=== PATIENT | male | born 1960 | race Caucasian/White ===

== ENCOUNTER 2023-04-26 20:06 | Observation (INO) ==
--- NOTE | 2023-04-26 20:46 | Emergency Department Note ---
Impression & Plan Chest pain, Syncope ED Provider Note NAME: LUDA WILKINSON AGE: 62 SEX: M : 1960 ARRIVES VIA: Ambulance INFORMANT: Patient ED PROVIDER(S): Parth Silver DO CHIEF COMPLAINT: Chest pain and syncope HPI: Patient is a 62-year-old male who presents to the ER with a past medical history of [place] with a stent who presents to the ER as he took Gummies and drank alcohol today. He notes he was sitting eating and went outside as he was not feeling well. He went to vomit and he passed out for about 30 seconds. When he woke back up he knew where he was and what was going on. There was no seizure activity per bystanders. EMS was called and he was brought in. He does note some chest heaviness which has now abated. Last for about 30 minutes. He has some tingling in bilateral arms. No dysuria, urgency, or frequency. No other exacerbating or remitting factors. ADDITIONAL HISTORY OBTAINED: Per HPI Chronic Medical/Social Conditions Affecting Care: Per HPI PAST MEDICAL HISTORY:See Below PAST SURGICAL HISTORY:See Below FAMILY HISTORY:See Below SOCIAL HISTORY:See Below HOME MEDICATIONS:See Below ALLERGIES:See Below VITALS:See Below PHYSICAL EXAMINATION: GENERAL: Sitting up in bed, alert, well appearing, well nourished, no distress, non-toxic EYE EXAM: normal conjunctiva. PERRL and EOM's grossly intact. OROPHARYNX: mucous membranes are moist NECK: supple, no nuchal rigidity, no adenopathy, non-tender LUNGS: Clear to auscultation. Normal chest wall mechanics HEART: no murmurs, S1 normal and S2 normal ABDOMEN: abdomen soft, non-tender, normo-active bowel sounds, no masses, no rebound or guarding. UPPER EXTREMITIES: upper extremities are grossly normal. LOWER EXTREMITIES: No pitting edema. NEURO EXAM: Normal sensorium, cranial nerves II-XII grossly intact, normal speech, no gross weakness of arms, no gross weakness of legs. No drift. Finger to nose intact. Gross sensation intact. MEDICAL DECISION MAKING: Patient is a 62-year-old male who presents ER for above-stated complaint. IV was established blood work is obtained. Labs show no significant leukocytosis. No anemia. BMP along with LFTs bilirubin was unremarkable. Troponin was negative. Lipase was normal. CT of the head was negative. Chest x-ray unremarkable. Patient's symptoms were completely abated by the time he reached the ER. He was given aspirin. He was updated bedside and with his history of a previous [place] noting that this felt similar but definitely not the same I did elect to observe him overnight. Do favor the syncopal event was vasovagal in nature. External Records Reviewed: None Consults/Care Managements Discussions: Per MDM Triage Nursing notes reviewed. Limited review of prior medical records performed Vital Signs: reviewed and remarkable for no significant abnormalities Differential diagnosis: Cardiac ischemia, aortic dissection, pulmonary embolism, pneumothorax, pneumonia, pericarditis, myocarditis, esophageal rupture, GERD, cholecystitis, pancreatitis, musculoskeletal, as well as other pathologies. ER treatment provided: See below Diagnostics interpreted by me include EKG and cardiac monitoring as listed below: -Cardiac Monitoring: An order was placed for continuous cardiac monitoring. The monitor shows a rate of 72 with sinus rhythm. -ECG: Sinus rhythm rate 73 Normal axis No PVCs QTc 464 -Laboratory studies:Interpreted by me as stated above in MDM and shown below. Imaging studies: Xrays: As interpreted by me: Portable AP upright 1 view of the chest shows no focal infiltrate CTs show: CT of the head was negative per radiology Procedures:none Critical Care: None Past Med/Surg History Social History Smoking Status: Never smoker Allergies Allergies Allergy/AdvReac Type Severity Reaction Status Date / Time No Known Allergies Allergy Unverified 04/27/23 00:32 Home Meds Home Medications Medication Instructions Recorded Confirmed amlodipine 5 mg tablet 5 mg PO DAILY 04/27/23 04/27/23 atorvastatin 80 mg tablet 80 mg PO HS 04/27/23 04/27/23 metoprolol succinate 100 mg 100 mg PO DAILY 04/27/23 04/27/23 tablet,extended release 24 hr nitroglycerin 0.4 mg sublingual 0.4 mg sublingual DIRECTED PRN 04/27/23 04/27/23 tablet Chest Pain pantoprazole 40 mg tablet,delayed 40 mg PO DAILY 04/27/23 04/27/23 release prasugrel 10 mg tablet 10 mg PO DAILY 04/27/23 04/27/23 sildenafil 50 mg tablet 50 mg PO DIRECTED PRN .prior to 04/27/23 04/27/23 sex valsartan 320 mg tablet 320 mg PO DAILY 04/27/23 04/27/23 Results & Data (ED) Vital Signs Vital Signs - 24 hr 04/26/23 19:49 04/26/23 20:33 04/26/23 20:30 Temperature 37.1 C Temperature Source Oral Pulse Rate 64 71 73 Respiratory Rate 21 17 Respiratory Effort / Characteristics Non-Labored Respiratory Depth Normal Blood Pressure 129/83 134/80 Blood Pressure Mean 98 95 Pulse Oximetry 99 99 Oxygen Delivery Method Room Air Room Air Sepsis Recent Fever Within 48 Hours No Sepsis New/Unexplained Change in Mental Status N/A Sepsis Action Taken by Nursing No Action Required 04/26/23 21:00 04/26/23 21:30 04/26/23 22:00 Temperature Temperature Source Pulse Rate 78 76 78 Respiratory Rate 21 23 22 Respiratory Effort / Characteristics Respiratory Depth Blood Pressure 127/84 120/75 122/74 Blood Pressure Mean 90 89 91 Pulse Oximetry 99 93 94 Oxygen Delivery Method Room Air Room Air Room Air Sepsis Recent Fever Within 48 Hours Sepsis New/Unexplained Change in Mental Status Sepsis Action Taken by Nursing 04/26/23 22:30 04/26/23 23:06 04/26/23 23:30 Temperature Temperature Source Pulse Rate 84 81 86 Respiratory Rate 24 24 Respiratory Effort / Characteristics Respiratory Depth Blood Pressure 126/77 151/94 H 130/94 Blood Pressure Mean 88 108 100 Pulse Oximetry 96 96 99 Oxygen Delivery Method Room Air Room Air Room Air Sepsis Recent Fever Within 48 Hours Sepsis New/Unexplained Change in Mental Status Sepsis Action Taken by Nursing 04/27/23 00:00 04/27/23 00:30 04/27/23 01:00 Temperature Temperature Source Pulse Rate 84 87 83 Respiratory Rate 20 19 Respiratory Effort / Characteristics Respiratory Depth Blood Pressure 148/95 H 171/107 H 131/74 Blood Pressure Mean 113 151 92 Pulse Oximetry 95 97 97 Oxygen Delivery Method Room Air Room Air Room Air Sepsis Recent Fever Within 48 Hours Sepsis New/Unexplained Change in Mental Status Sepsis Action Taken by Nursing Laboratory Data 04/26/23 20:20 04/26/23 20:20 Lab Results 04/26/23 04/26/23 Range/Units 20:20 20:20 WBC 8.97 (4.8-10.8) K/ul RBC 4.53 L (4.70-6.10) M/uL Hgb 13.7 L (14.0-18.0) g/dl Hct 38.7 L (42.0-52.0) % MCV 85.4 (80.0-100.0) fL MCH 30.2 (25.0-34.0) pg MCHC 35.4 (32.0-36.0) g/dL RDW Std Deviation 39.2 (36.4-46.3) fL RDW Coeff of El 12.7 (11.5-14.5) % Plt Count 175 (130-400) K/uL MPV 10.4 (9.4-12.4) fL Immature Gran % (Auto) 0.6 % Neut % (Auto) 69.0 % Lymph % (Auto) 19.6 % [place] % (Auto) 8.2 % Eos % (Auto) 1.8 % Baso % (Auto) 0.8 % Neut # (Auto) 6.19 (1.40-6.50) K/uL Lymph # (Auto) 1.76 (1.20-3.40) K/uL [place] # (Auto) 0.74 H (0.11-0.59) K/uL Eos # (Auto) 0.16 (0.00-0.50) K/uL Baso # (Auto) 0.07 (0.00-0.20) K/uL Immature Gran # (Auto) 0.05 (0.01-0.20) K/uL Sodium 139 (136-145) mmol/L Potassium 3.9 (3.5-5.1) mmol/L Chloride 109 H (98-107) mmol/L Carbon Dioxide 22 (21-32) mmol/L Anion Gap 8 (3-11) BUN 23 (6-23) mg/dl Creatinine 1.31 (0.6-1.4) mg/dl Est Cr Clr Drug Dosing 67.5 ml/min Est GFR ( Amer) 68.1 ml/min Est GFR (Non-Af Amer) 58.8 ml/min BUN/Creatinine Ratio 17.6 (10-20) Glucose 98 (70-99(Fasting)) mg/dl Calcium 8.5 L (8.6-10.3) mg/dl Total Bilirubin 1.2 H (0.2-1.0) mg/dl AST 18 (13-39) U/L ALT 22 (7-52) U/L Alkaline Phosphatase 84 (34-104) U/L Troponin I High Sens < 2.3 (0-20) pg/ml Total Protein 6.6 (6.0-8.3) gm/dl Albumin 4.1 (3.4-5.0) gm/dl Globulin 2.5 (2.5-4.0) gm/dl Albumin/Globulin Ratio 1.6 (0.9-2) Lipase 41 (11-82) U/L Imaging Data Radiologist's Impression: Chest X-Ray 04/26/23 20:34 XR chest 1V portable HISTORY: 62 years-old Male Chest pain, nonspecific COMPARISON: None TECHNIQUE: AP view of the chest FINDINGS: Cardiac silhouette upper limits of normal in size. No pneumothorax, pleural effusion or airspace consolidation. Bones appear grossly intact. IMPRESSION: No acute process. ACT 112: Negative or not required by law. The above report was generated using voice recognition software. It may contain grammatical, syntax or spelling errors. Electronically signed by: Reynaldo Faulkner M.D. 04/26/2023 9:[address] 04/26/23 22:24 Exam(s): CT HEAD Without Contrast EXAM: CT Head Without Intravenous Contrast CLINICAL HISTORY: Reason for exam: fall. TECHNIQUE: Axial computed tomography images of the head/brain without intravenous contrast. CTDI is 36.43 mGy and DLP is 624.41 mGy-cm. Automated exposure control was utilized for the study. A dose lowering technique was utilized adhering to the principles of ALARA. COMPARISON: No relevant prior studies available. FINDINGS: Brain: Unremarkable. No hemorrhage. No significant white matter disease. No edema. Ventricles: Unremarkable. No ventriculomegaly. Bones/joints: Nondisplaced fracture of the right zygomatic arch, which may be remote. Soft tissues: Unremarkable. Sinuses: Chronic ethmoid sinusitis. Status post endoscopic sinus surgery. No acute sinusitis. Mastoid air cells: Unremarkable as visualized. No mastoid effusion. IMPRESSION: No evidence of acute intracranial pathology. Electronically signed by: Airam Bey MD 04/27/23 00:55 AM Discharge Plan Visit Data Chief Complaint: Chest Pain Stated Complaint: Chest Pain ED Provider: Parth Silver Discharge Problem: Chest pain, Syncope Forms Stand Alone Forms: [facility] Backpack Prescriptions Prescriptions: No Action atorvastatin 80 mg tablet 80 mg PO HS sildenafil 50 mg tablet 50 mg PO DIRECTED PRN (Reason: .prior to sex) metoprolol succinate 100 mg tablet extended release 24 hr 100 mg PO DAILY amlodipine 5 mg tablet 5 mg PO DAILY pantoprazole 40 mg tablet,delayed release (DR/EC) 40 mg PO DAILY valsartan 320 mg tablet 320 mg PO DAILY nitroglycerin 0.4 mg tablet, sublingual 0.4 mg sublingual DIRECTED PRN (Reason: Chest Pain) prasugrel 10 mg tablet 10 mg PO DAILY Referrals Referrals: PCP,NO [Primary Care Provider] -
--- NOTE | 2023-04-26 21:21 | XRay Report ---
XR chest 1V portable HISTORY: 62 years-old Male Chest pain, nonspecific COMPARISON: None TECHNIQUE: AP view of the chest FINDINGS: Cardiac silhouette upper limits of normal in size. No pneumothorax, pleural effusion or airspace cons olidation. Bones appear grossly intact. IMPRESSION: No acute process. ACT 112: Negative or not required by law. The above report was generated using voice recognition software. It may contain grammatical, syntax o r spelling errors. Electronically signed by: Reynaldo Faulkner M.D. 04/26/2023 9:19 PM
[2023-04-26 21:23] LABS: Basophils # (auto) 0.07 K/uL (0.00-0.20); Basophils % (auto) 0.8 %; Eosinophils # (auto) 0.16 K/uL (0.00-0.50); Eosinophils % (auto) 1.8 %; Hematocrit (blood only) 38.7 % (42.0-52.0); Hemoglobin 13.7 g/dl (14.0-18.0); Immature Granulocytes # (auto) 0.05 K/uL (0.01-0.20); Immature Granulocytes % (auto) 0.6 %; Lymphocytes # (auto) 1.76 K/uL (1.20-3.40); Lymphocytes % (auto) 19.6 %; Mean Corpuscular Hemoglobin 30.2 pg (25.0-34.0); Mean Corpuscular Hgb Conc 35.4 g/dL (32.0-36.0); Mean Corpuscular Volume 85.4 fL (80.0-100.0); Mean Platelet Volume 10.4 fL (9.4-12.4); Monocytes # (auto) 0.74 K/uL (0.11-0.59); Monocytes % (auto) 8.2 %; Neutrophils # (auto) 6.19 K/uL (1.40-6.50); Platelet Count 175 K/uL (130-400); RDW Coefficient of Variation 12.7 % (11.5-14.5); RDW Standard Deviation 39.2 fL (36.4-46.3); Red Blood Count 4.53 M/uL (4.70-6.10); White Blood Count 8.97 K/ul (4.8-10.8)
[2023-04-26 21:56] LABS: Alanine Aminotransferase 22 U/L (7-52); Albumin Globulin Ratio 1.6 (0.9-2); Albumin Level 4.1 gm/dl (3.4-5.0); Alkaline Phosphatase 84 U/L (34-104); Anion Gap 8 (3-11); Aspartate Aminotransferase 18 U/L (13-39); BUN Creatinine Ratio 17.6 (10-20); Bilirubin,Total 1.2 mg/dl (0.2-1.0); Blood Urea Nitrogen 23 mg/dl (6-23); Calcium 8.5 mg/dl (8.6-10.3); Carbon Dioxide 22 mmol/L (21-32); Chloride 109 mmol/L (98-107); Creatinine Clr Calc Pharmacy 67.5 ml/min; Est GFR (African American) 68.1 ml/min; Est GFR (Non-African American) 58.8 ml/min; Globulin 2.5 gm/dl (2.5-4.0); Glucose 98 mg/dl (70-99(Fasting)); Lipase 41 U/L (11-82); Potassium 3.9 mmol/L (3.5-5.1); Sodium 139 mmol/L (136-145); Total Protein 6.6 gm/dl (6.0-8.3)
[2023-04-26 22:01] LABS: Troponin I High Sensitivity < 2.3 pg/ml (0-20)
--- NOTE | 2023-04-27 00:56 | CT Scan Report ---
Exam(s): CT HEAD Without Contrast EXAM: CT Head Without Intravenous Contrast CLINICAL HISTORY: Reason for exam: fall. TECHNIQUE: Axial computed tomography images of the head/brain without intravenous contrast. CTDI is 36.43 mGy and DLP is 624.41 mGy-cm. Automated exposure control was utilized for the study. A dose lowering technique was utilized adhering to the principles of ALARA. COMPARISON: No relevant prior studies available. FINDINGS: Brain: Unremarkable. No hemorrhage. No significant white matter disease. No edema. Ventricles: Unremarkable. No ventriculomegaly. Bones/joints: Nondisplaced fracture of the right zygomatic arch, which may be remote. Soft tissues: Unremarkable. Sinuses: Chronic ethmoid sinusitis. Status post endoscopic sinus surgery. No acute sinusitis. Mastoid air cells: Unremarkable as visualized. No mastoid effusion. IMPRESSION: No evidence of acute intracranial pathology. Electronically signed by: Airam Bey MD 04/27/23 00:55 AM
[2023-04-27] MEDS ORDERED: ASPIRIN CHEW 324 MG PO STA (01:26)
--- NOTE | 2023-04-27 02:34 | History & Physical Report ---
Date of Service April 27, 2023 Assessment & Plan (1) Syncope: Plan: 62-year-old male with past medical significant for CAD s/p stent in August 2022, hypertension, hyperlipidemia, GERD who is visiting [place] for [employer] match presents with syncope. Patient was sitting his friends eating pizza when he suddenly passed out 30 to 60 seconds. No biting of the tongue. No incontinence. After he woke up he seems to be confused, dizzy for up for few hours. After he woke up initially had some chest pressure but got resolved. Syncope Monitoring telemetry Orthostatics Echo Serial cardiac enzymes EEG IV fluids Consult cardiology in a.m. Chest pain Had for a brief time after syncope EKG and troponin okay We will follow serial enzymes and echo Cardiac consult in a.m. History of CAD status post stent On statin, prasugrel and beta-satnam. Hyperlipidemia On statin Hypertension On metoprolol succinate, amlodipine and valsartan We will monitor GERD On Protonix DVT prophylaxis SCDs Disposition telemetry floor Full code History of Present Illness Chief Complaint: Syncope Primary Care Provider: NO PCP 62-year-old male with past medical significant for CAD s/p stent in August 2022, hypertension, hyperlipidemia, GERD who is visiting [place] for [employer] match presents with syncope. Patient was sitting with his friends eating pizza when he suddenly passed out 30 to 60 seconds. No biting of the tongue. No incontinence. After he woke up he seems to be confused, dizzy for u p for few hours. After he woke up initially had some chest pressure but got resolved. Denies any shortness of breath. No cough. No fevers. No headache. Earlier had some blurred vision initially that improved now. No runny nose or sore throat. Eating and drinking okay. Was nauseous earlier that improved. No abdominal pain. Normal bowel and bladder movements. Currently resting comfortably and hemodynamically stable. Past medical history. As mentioned above Past surgical history. Cardiac cath and stent placement. Deviated nasal septum repair. Social history. Denies smoking. Denies alcohol. Denies any drugs. Family history. Mother and father had cancer Allergies Allergy/AdvReac Type Severity Reaction Status Date / Time No Known Allergies Allergy Unverified 04/27/23 00:32 Home Medications Medication Instructions Recorded Confirmed Type amlodipine 5 mg tablet 5 mg PO DAILY 04/27/23 04/27/23 History atorvastatin 80 mg tablet 80 mg PO HS 04/27/23 04/27/23 History metoprolol succinate 100 mg 100 mg PO DAILY 04/27/23 04/27/23 History tablet,extended release 24 hr nitroglycerin 0.4 mg sublingual 0.4 mg sublingual DIRECTED PRN 04/27/23 04/27/23 History tablet Chest Pain pantoprazole 40 mg tablet,delayed 40 mg PO DAILY 04/27/23 04/27/23 History release prasugrel 10 mg tablet 10 mg PO DAILY 04/27/23 04/27/23 History sildenafil 50 mg tablet 50 mg PO DIRECTED PRN .prior to 04/27/23 04/27/23 History sex valsartan 320 mg tablet 320 mg PO DAILY 04/27/23 04/27/23 History Past Med/Surg History Social History Smoking Status: Never smoker Second Hand Exposure: No; Do You Dip or Chew Tobacco: No; Tobacco Cessation Education Requested by Patient: No Hx Alcohol Use: No Hx Substance Use: No Communication Ability: Effective 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 Head- atraumatic Eyes- PERRL. ENT- oropharynx clear Neck- supple, no JVD. Lungs- clear to auscultation , no wheezing or crackles. Heart- regular rhythm; no murmur, no gallop. Abdomen- normal bowel sounds, soft, nontender, no distension. Extremities- no pretibial edema, no erythema seen. Neuro- alert, oriented x 3; PERRL,; no facial palsy; no dysarthria;obeys commands, moves extremities. Skin- warm & dry Results & Data Results & Data Vital Signs (Past 12 Hours) Vital Signs Temp Pulse Resp BP Pulse Ox O2 Del Method 04/27/23 01:00 83 19 131/74 97 Room Air 04/27/23 00:30 87 20 171/107 H 97 Room Air 04/27/23 00:00 84 148/95 H 95 Room Air 10/27/23 23:30 86 130/94 99 Room Air 04/26/23 23:06 81 24 151/94 H 96 Room Air 04/26/23 22:30 84 24 126/77 96 Room Air 04/26/23 22:00 78 22 122/74 94 Room Air 04/26/23 21:30 76 23 120/75 93 Room Air 04/26/23 21:00 78 21 127/84 99 Room Air 04/26/23 20:30 73 17 134/80 99 Room Air 04/26/23 20:33 71 04/26/23 19:49 37.1 C 64 21 129/83 99 Room Air Diagnostic Findings Laboratory Results WBC 8.97 K/ul (4.8-10.8) 04/26/23 20:20 RBC 4.53 M/uL (4.70-6.10) L 04/26/23 20:20 Hgb 13.7 g/dl (14.0-18.0) L 04/26/23 20:20 Hct 38.7 % (42.0-52.0) L 04/26/23 20:20 MCV 85.4 fL (80.0-100.0) 04/26/23 20:20 MCH 30.2 pg (25.0-34.0) 04/26/23 20:20 MCHC 35.4 g/dL (32.0-36.0) 04/26/23 20:20 RDW Std Deviation 39.2 fL (36.4-46.3) 04/26/23 20:20 RDW Coeff of El 12.7 % (11.5-14.5) 04/26/23 20:20 Plt Count 175 K/uL (130-400) 04/26/23 20:20 MPV 10.4 fL (9.4-12.4) 04/26/23 20:20 Immature Gran % (Auto) 0.6 % 04/26/23 20:20 Neut % (Auto) 69.0 % 04/26/23 20:20 Lymph % (Auto) 19.6 % 04/26/23 20:20 [place] % (Auto) 8.2 % 04/26/23 20:20 Eos % (Auto) 1.8 % 04/26/23 20:20 Baso % (Auto) 0.8 % 04/26/23 20:20 Neut # (Auto) 6.19 K/uL (1.40-6.50) 04/26/23 20:20 Lymph # (Auto) 1.76 K/uL (1.20-3.40) 04/26/23 20:20 [place] # (Auto) 0.74 K/uL (0.11-0.59) H 04/26/23 20:20 Eos # (Auto) 0.16 K/uL (0.00-0.50) 04/26/23 20:20 Baso # (Auto) 0.07 K/uL (0.00-0.20) 04/26/23 20:20 Immature Gran # (Auto) 0.05 K/uL (0.01-0.20) 04/26/23 20:20 Sodium 139 mmol/L (136-145) 04/26/23 20:20 Potassium 3.9 mmol/L (3.5-5.1) 04/26/23 20:20 Chloride 109 mmol/L (98-107) H 04/26/23 20:20 Carbon Dioxide 22 mmol/L (21-32) 04/26/23 20:20 Anion Gap 8 (3-11) 04/26/23 20:20 BUN 23 mg/dl (6-23) 04/26/23 20:20 Creatinine 1.31 mg/dl (0.6-1.4) 04/26/23 20:20 Est Cr Clr Drug Dosing 67.5 ml/min 04/26/23 20:20 Est GFR ( Amer) 68.1 ml/min 04/26/23 20:20 Est GFR (Non-Af Amer) 58.8 ml/min 04/26/23 20:20 BUN/Creatinine Ratio 17.6 (10-20) 04/26/23 20:20 Glucose 98 mg/dl (70-99(Fasting)) 04/26/23 20:20 Calcium 8.5 mg/dl (8.6-10.3) L 04/26/23 20:20 Total Bilirubin 1.2 mg/dl (0.2-1.0) H 04/26/23 20:20 AST 18 U/L (13-39) 04/26/23 20:20 ALT 22 U/L (7-52) 04/26/23 20:20 Alkaline Phosphatase 84 U/L (34-104) 04/26/23 20:20 Troponin I High Sens < 2.3 pg/ml (0-20) 04/26/23 20:20 Total Protein 6.6 gm/dl (6.0-8.3) 04/26/23 20:20 Albumin 4.1 gm/dl (3.4-5.0) 04/26/23 20:20 Globulin 2.5 gm/dl (2.5-4.0) 04/26/23 20:20 Albumin/Globulin Ratio 1.6 (0.9-2) 04/26/23 20:20 Lipase 41 U/L (11-82) 04/26/23 20:20 Impressions Chest X-Ray 04/26/23 20:34 XR chest 1V portable HISTORY: 62 years-old Male Chest pain, nonspecific COMPARISON: None TECHNIQUE: AP view of the chest FINDINGS: Cardiac silhouette upper limits of normal in size. No pneumothorax, pleural effusion or airspace consolidation. Bones appear grossly intact. IMPRESSION: No acute process. ACT 112: Negative or not required by law. The above report was generated using voice recognition software. It may contain grammatical, syntax or spelling errors. Electronically signed by: Reynaldo Faulkner M.D. 04/26/2023 9:[address] 04/26/23 22:24 Exam(s): CT HEAD Without Contrast EXAM: CT Head Without Intravenous Contrast CLINICAL HISTORY: Reason for exam: fall. TECHNIQUE: Axial computed tomography images of the head/brain without intravenous contrast. CTDI is 36.43 mGy and DLP is 624.41 mGy-cm. Automated exposure control was utilized for the study. A dose lowering technique was utilized adhering to the principles of ALARA. COMPARISON: No relevant prior studies available. FINDINGS: Brain: Unremarkable. No hemorrhage. No significant white matter disease. No edema. Ventricles: Unremarkable. No ventriculomegaly. Bones/joints: Nondisplaced fracture of the right zygomatic arch, which may be remote. Soft tissues: Unremarkable. Sinuses: Chronic ethmoid sinusitis. Status post endoscopic sinus surgery. No acute sinusitis. Mastoid air cells: Unremarkable as visualized. No mastoid effusion. IMPRESSION: No evidence of acute intracranial pathology. Electronically signed by: Airam Bey MD 04/27/23 00:55 AM ECG Additional Comments: ECG. Normal sinus rhythm with rate of 73. Code Status & VTE Plan VTE Prophylaxis Plan VTE Prophylaxis will be ordered: Yes
[2023-04-27] MEDS ORDERED: SODIUM CHLORIDE 0.9% 1,000 ML IV SCH (03:38)
[2023-04-27] MEDS ORDERED: ACETAMINOPHEN 325 MG TAB PO PRN (03:38)
[2023-04-27] MEDS ORDERED: NITROGLYCERIN SL 0.4 MG/TAB TAB SL PRN (03:38)
[2023-04-27] MEDS ORDERED: POLYETHYLENE (MIRALAX) 17 GM PACK PO PRN (03:38)
[2023-04-27 05:31] LABS: Basophils # (auto) 0.04 K/uL (0.00-0.20); Basophils % (auto) 0.5 %; Eosinophils # (auto) 0.04 K/uL (0.00-0.50); Eosinophils % (auto) 0.5 %; Hematocrit (blood only) 40.9 % (42.0-52.0); Hemoglobin 14.3 g/dl (14.0-18.0); Immature Granulocytes # (auto) 0.03 K/uL (0.01-0.20); Immature Granulocytes % (auto) 0.4 %; Lymphocytes # (auto) 1.69 K/uL (1.20-3.40); Lymphocytes % (auto) 20.1 %; Mean Corpuscular Volume 85.9 fL (80.0-100.0); Mean Platelet Volume 10.1 fL (9.4-12.4); Monocytes # (auto) 0.77 K/uL (0.11-0.59); Monocytes % (auto) 9.2 %; Neutrophils # (auto) 5.84 K/uL (1.40-6.50); Neutrophils % (auto) 69.3 %; Platelet Count 161 K/uL (130-400); RDW Coefficient of Variation 12.6 % (11.5-14.5); RDW Standard Deviation 39.2 fL (36.4-46.3); Red Blood Count 4.76 M/uL (4.70-6.10); White Blood Count 8.41 K/ul (4.8-10.8)
[2023-04-27 05:50] LABS: BUN Creatinine Ratio 19.5 (10-20); Calcium 8.7 mg/dl (8.6-10.3); Creatinine Clr Calc Pharmacy 76.1 ml/min; Est GFR (African American) 81.4 ml/min; Est GFR (Non-African American) 70.3 ml/min; Potassium 4.1 mmol/L (3.5-5.1)
[2023-04-27 05:57] LABS: Troponin I High Sensitivity 2.8 pg/ml (0-20)
--- NOTE | 2023-04-27 07:45 | Electrocardiogram Report ---
Test Reason : Blood Pressure : / mmHG Vent. Rate : 073 BPM Atrial Rate : 073 BPM P-R Int : 190 ms QRS Dur : 074 ms QT Int : 422 ms P-R-T Axes : 061 046 074 degrees QTc Int : 464 ms Normal sinus rhythm Normal ECG No previous ECGs available Confirmed by Newton Moreno ([id number]) on 04/27/2023 7:45:13 AM Referred By: REFERRED SELF Confirmed By:Thomas Moreno
--- NOTE | 2023-04-27 07:52 | Electrocardiogram Report ---
Test Reason : Blood Pressure : / mmHG Vent. Rate : 077 BPM Atrial Rate : 077 BPM P-R Int : 190 ms QRS Dur : 086 ms QT Int : 394 ms P-R-T Axes : 055 018 036 degrees QTc Int : 445 ms Normal sinus rhythm Normal ECG When compared with ECG of 26-APR-2023 20:18, (unconfirmed) No significant change was found Confirmed by Newton Moreno ([id number]) on 04/27/2023 7:51:55 AM Referred By: REFERRED SELF Confirmed By:Thomas Moreno
[2023-04-27] MEDS ORDERED: amLODIPine BESYLATE 5 MG TAB PO SCH (09:00)
[2023-04-27] MEDS ORDERED: VALSARTAN 80 MG TAB PO SCH (09:00)
[2023-04-27] MEDS ORDERED: METOPROLOL SUCC 50MG EXT REL TAB PO SCH (09:00)
[2023-04-27] MEDS ORDERED: PRASugrel TAB 10 MG TAB PO SCH (09:00)
[2023-04-27] MEDS ORDERED: PANTOprazole 40 MG TAB PO SCH (09:00)
[2023-04-27] MEDS ORDERED: ASPIRIN 81 MG ECTAB PO SCH (10:30)
--- NOTE | 2023-04-27 10:35 | Cardiology Consultation ---
Date of Consultation April 27, 2023 Assessment & Plan (1) Syncope: (2) CAD (coronary artery disease), [place] coronary artery: Plan 62-year-old male presents to the emergency department after loss of consciousness possibly related to consumption of THC edible in conjunction with mild alcohol use. No evidence of acute coronary syndrome. ECG without ischemic changes. High-sensitivity troponin are within normal limits. Review resting 2D transthoracic echocardiogram when able. Telemetry without tachycardia or bradycardia. Recommend outpatient 14-day ZIO monitor for further evaluation. Patient advised to avoid further use of THC products. History of Present Illness Reason for Consultation: syncope Requesting Physician: Dr. Ho Attending Physician: Aleena Cain MD History of Present Illness 62-year-old male presents to the emergency department after loss of consciousness. Traveling during the day from [place]. Admits to consuming a few alcoholic beverages. Approximately an hour and a half prior to loss of consciousness he consumed a edible THC gummy. Typically does not utilize any THC products or marijuana. Reports sitting in a chair and feeling nauseated, felt as if he was going to throw up. Witnesses note him slowly losing consciousness and looking upward. He slumped to one side and was unconscious/unresponsive for approximately 30 seconds. When he awoke he became nauseated and began vomiting. Admits to feeling "groggy" and slow mentally for approximately 2 to 3 hours after the event. Denies any tongue biting or incontinence. No tonic/clonic movements reported. Feeling better this morning. Telemetry reveals sinus rhythm overnight without tachycardia or bradycardia. History significant for coronary stenting in August of this year. Compliant with prasugrel and aspirin. Reports remote history of atrial fibrillation, however, he is not chronically anticoagulated. Denies any chest discomfort or unusual shortness of breath recently. No orthopnea, PND, or lower extremity edema. Allergies Allergy/AdvReac Type Severity Reaction Status Date / Time No Known Allergies Allergy Unverified 04/27/23 00:32 Home Medications Medication Instructions Recorded Confirmed Type amlodipine 5 mg tablet 5 mg PO DAILY 04/27/23 04/27/23 History atorvastatin 80 mg tablet 80 mg PO HS 04/27/23 04/27/23 History metoprolol succinate 100 mg 100 mg PO DAILY 04/27/23 04/27/23 History tablet,extended release 24 hr nitroglycerin 0.4 mg sublingual 0.4 mg sublingual DIRECTED PRN 04/27/23 04/27/23 History tablet Chest Pain pantoprazole 40 mg tablet,delayed 40 mg PO DAILY 04/27/23 04/27/23 History release prasugrel 10 mg tablet 10 mg PO DAILY 04/27/23 04/27/23 History sildenafil 50 mg tablet 50 mg PO DIRECTED PRN .prior to 04/27/23 04/27/23 History sex valsartan 320 mg tablet 320 mg PO DAILY 04/27/23 04/27/23 History Patient History Social History Smoking Status: Never smoker Second Hand Exposure: No; Do You Dip or Chew Tobacco: No; Tobacco Cessation Education Requested by Patient: No Hx Alcohol Use: No Hx Substance Use: No Communication Ability: Effective Non Destructive Evaluation Technician Required: No Beliefs That Will Affect Care: None Current Living Situation: Spouse Other Information That Helps Us Care for You: No Feels Safe at Home: Yes Safety Concerns: Feels Safe At This Time Assistive Devices: Glasses Review of Systems Review of Systems: All systems reviewed & are unremarkable except as noted in Subjective Physical Exam Constitutional: well developed and well nourished; no acute distress Respiratory: normal respiratory effort; no respiratory distress, no labored breathing and no retractions Auscultation: no crackles, no rales, no rhonchi and no wheezes Cardiovascular: Rate/Rhythm: regular rate and regular rhythm Heart Sounds: normal S1 and normal S2; no murmur Vessels: no JVD and no carotid bruit Extremities: no edema Gastrointestinal (Abdomen): Inspection/Auscultation: abdomen normal to inspection; abdomen not distended Percussion/Palpation: abdomen soft; abdomen nontender, no guarding and abdomen not rigid Neurologic: CN's II-XI intact bilaterally and moves all extremities; no focal motor deficits Psychiatric: A+Ox3, euthymic affect Results & Data Vital Signs (Past 12 Hours) Vital Signs Temp Pulse Pulse Resp BP BP Pulse Ox 04/27/23 08:00 80 04/27/23 08:31 36.7 C 78 18 147/75 H 97 04/27/23 03:37 36.5 C 79 14 151/90 H 98 04/27/23 03:00 76 128/79 95 04/27/23 02:30 81 123/80 95 04/27/23 02:00 81 127/69 94 04/27/23 01:30 94 H 149/98 H 97 04/27/23 01:00 83 19 131/74 97 04/27/23 00:30 87 20 171/107 H 97 04/27/23 00:00 84 148/95 H 95 04/26/23 23:30 86 130/94 99 04/26/23 23:06 81 24 151/94 H 96 04/26/23 22:30 84 24 126/77 96 O2 Del Method 04/27/23 08:00 04/27/23 08:31 Room Air 04/27/23 03:37 Room Air 04/27/23 03:00 Room Air 04/27/23 02:30 Room Air 04/27/23 02:00 Room Air 04/27/23 01:30 Room Air 04/27/23 01:00 Room Air 04/27/23 00:30 Room Air 04/27/23 00:00 Room Air 04/26/23 23:30 Room Air 04/26/23 23:06 Room Air 04/26/23 22:30 Room Air Laboratory Results Cardiac Enzymes 04/26/23 04/27/23 Range/Units 20:20 05:12 AST 18 (13-39) U/L Troponin I High Sens < 2.3 2.8 (0-20) pg/ml CBC 04/26/23 04/27/23 Range/Units 20:20 05:12 WBC 8.97 8.41 (4.8-10.8) K/ul RBC 4.53 L 4.76 (4.70-6.10) M/uL Hgb 13.7 L 14.3 (14.0-18.0) g/dl Hct 38.7 L 40.9 L (42.0-52.0) % Plt Count 175 161 (130-400) K/uL Neut # (Auto) 6.19 5.84 (1.40-6.50) K/uL Lymph # (Auto) 1.76 1.69 (1.20-3.40) K/uL [place] # (Auto) 0.74 H 0.77 H (0.11-0.59) K/uL Eos # (Auto) 0.16 0.04 (0.00-0.50) K/uL Baso # (Auto) 0.07 0.04 (0.00-0.20) K/uL Comprehensive Metabolic Panel 04/26/23 04/27/23 Range/Units 20:20 05:12 Sodium 139 137 (136-145) mmol/L Potassium 3.9 4.1 (3.5-5.1) mmol/L Chloride 109 H 105 (98-107) mmol/L Carbon Dioxide 22 25 (21-32) mmol/L BUN 23 22 (6-23) mg/dl Creatinine 1.31 1.13 (0.6-1.4) mg/dl Glucose 98 95 (70-99(Fasting)) mg/dl Calcium 8.5 L 8.7 (8.6-10.3) mg/dl AST 18 (13-39) U/L ALT 22 (7-52) U/L Alkaline Phosphatase 84 (34-104) U/L Total Protein 6.6 (6.0-8.3) gm/dl Albumin 4.1 (3.4-5.0) gm/dl Intake and Output 04/26/23 04/27/23 04/27/23 22:59 06:59 14:59 Other: Other Intake Source npo Weight 96.5 kg 91 kg Weight Measurement Method [facility]
--- NOTE | 2023-04-27 11:46 | Discharge Summary ---
Date of Service April 27, 2023 Admission HPI Per Admitting Provider 62-year-old male with past medical significant for CAD s/p stent in August 2022, hypertension, hyperlipidemia, GERD who is visiting [place] for [employer] match presents with syncope. Patient was sitting with his friends eating pizza when he suddenly passed out 30 to 60 seconds. No biting of the tongue. No incontinence. After he woke up he seems to be confused, dizzy for up for few hours. After he woke up initially had some chest pressure but got resolved. Denies any shortness of breath. No cough. No fevers. No headache. Earlier had some blurred vision initially that improved now. No runny nose or sore throat. Eating and drinking okay. Was nauseous earlier that improved. No abdominal pain. Normal bowel and bladder movements. Currently resting comfortably and hemodynamically stable. Past medical history. As mentioned above Past surgical history. Cardiac cath and stent placement. Deviated nasal septum repair. Social history. Denies smoking. Denies alcohol. Denies any drugs. Family history. Mother and father had cancer Admission Exam Per Admitting Provider General- Not in distress. Head- atraumatic Eyes- PERRL. ENT- oropharynx clear Neck- supple, no JVD. Lungs- clear to auscultation , no wheezing or crackles. Heart- regular rhythm; no murmur, no gallop. Abdomen- normal bowel sounds, soft, nontender, no distension. Extremities- no pretibial edema, no erythema seen. Neuro- alert, oriented x 3; PERRL,; no facial palsy; no dysarthria;obeys commands, moves extremities. Skin- warm & dry Principal Diagnosis Syncope Chest pain Discharge Exam Patient left before I could evaluate Discharge Data Allergies Allergy/AdvReac Type Severity Reaction Status Date / Time No Known Allergies Allergy Unverified 04/27/23 00:32 Consultations 04/26/23 22:16 ED Decision to Admit Stat 04/27/23 08:00 Consult Cardiology Routine Ordered Studies 04/26/23 22:24 CT head/brain wo con Stat Hospital Course (1) Syncope: 62-year-old male with past medical significant for CAD s/p stent in August 2022, hypertension, hyperlipidemia, GERD who is visiting [place] for football match presents with syncope. Patient was sitting his friends eating pizza when he suddenly passed out 30 to 60 seconds. No biting of the tongue. No incontinence. After he woke up he seems to be confused, dizzy for up for few hours. After he woke up initially had some chest pressure but got resolved. Syncope Chest pain Had chest pain for a brief time after syncope EKG did not show acute changes Trop trend were normal Cardiology evaluated and recommended patient to get outpatient zio patch testing Patient's Echo today noted EF 65-70%, subtle hypokinesis involving base of inferior wall, mod dilated LA, GI DD Patient left before I could evaluate him RN reported he had a family emergency and left before he could be properly discharged I called patient this evening and went over the Echo report and Repatcher recommendations. 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 Hyperlipidemia On statin Hypertension On metoprolol succinate, amlodipine and valsartan Total Time Total Time Spent Total Time Spent (In Minutes): 10 Total Time Includes: Other Discharge Plan Discharge Items Patient Disposition: Against Medical Advice Reason For Visit: SYNCOPE, CHEST PAIN Activity: Resume your previous activity Non-emergency contact: Primary Care Provider Follow-up/Referrals: PCP,NO [Primary Care Provider] - Pending Studies at Discharge: No Stand-Alone Forms: My [employer], Smoking Cessation Medications and DC Order Prescriptions: Continued atorvastatin 80 mg tablet 80 mg PO HS sildenafil 50 mg tablet 50 mg PO DIRECTED PRN (Reason: .prior to sex) metoprolol succinate 100 mg tablet extended release 24 hr 100 mg PO DAILY amlodipine 5 mg tablet 5 mg PO DAILY pantoprazole 40 mg tablet,delayed release (DR/EC) 40 mg PO DAILY valsartan 320 mg tablet 320 mg PO DAILY nitroglycerin 0.4 mg tablet, sublingual 0.4 mg sublingual DIRECTED PRN (Reason: Chest Pain) prasugrel 10 mg tablet 10 mg PO DAILY Discharge Orders: Left Against Medical Advice (Routine); Ordered 04/27/23 Ordered By: Aleena Cain Admission Data Admit Date/Time: 04/27/23 02:23 Attending Provider: Aleena Cain I. Admit Provider: Gab Ho Primary Care Provider: PCP,NO Other Providers: Gab Ho ; Monico Ramirez ; Abraham Rausch
[2023-04-27] MEDS ORDERED: ATORVASTATIN 40 MG TAB PO SCH (21:00)
== END 2023-04-27 11:30 | disposition left against medical advice (07) | DRG 312 ==
LOC: ED 20:06 → 2E 04-27 02:23 → SUATTDRO 04-27 02:23 → INTOOBSV 04-27 02:23 → 2E 04-27 03:18